=== PATIENT | male | born 1945 | race Caucasian/White ===

== ENCOUNTER 2018-02-26 15:58 | Observation (INO) | payer OTHER ==
[~2018-02-26] VITALS: Ht 180.3 cm; Wt 100.9 kg
[2018-02-26 16:09] VITALS: Ht 180.3 cm; Wt 100.9 kg
[2018-02-26 17:07] LABS: BASOPHIL % 0.3 % (0-2); CALCIUM 9.1 mg/dL (8.5-10.1); CARBON DIOXIDE 28.4 mmol/L (21-32); CHLORIDE SERUM 109 mmol/L (98-107); CREATININE SERUM 1.2 mg/dL (0.7-1.3); GLUCOSE SERUM 94 mg/dL (74-106); PLATELET COUNT 228 x10^3mcL (130-400); POTASSIUM SERUM 4.1 mmol/L (3.5-5.1); SODIUM SERUM 143 mmol/L (136-145)
[2018-02-26 17:13] LABS: ALBUMIN 3.4 g/dL (3.4-5.0); ALKALINE PHOSPHATASE 67 U/L (46-116); ALT/SGPT 28 U/L (16-63); AST/SGOT 24 U/L (15-37); BILIRUBIN TOTAL 0.5 mg/dL (0.20-1.00); MAGNESIUM 2.1 mg/dL (1.8-2.4); TOTAL PROTEIN, SERUM 6.5 g/dL (6.4-8.2)
[2018-02-26 17:21] LABS: T3 TOTAL 0.84 ng/mL
[2018-02-26 17:35] LABS: FREE T4 0.98 ng/dL (0.76-1.46); FREE THYROXINE INDEX 2.4 ug/dL (1.4-4.5); T4(THYROXINE) 6.7 ug/dL (4.7-13.3)
[2018-02-26] MEDS ORDERED: LOSARTAN POTASS50 M1 PO (18:53)
[2018-02-26] MEDS ORDERED: LIPI10 PO (18:55)
[2018-02-26] MEDS ORDERED: FLO4 PO (18:55)
[2018-02-26] MEDS ORDERED: TOP50 PO (18:56)
[2018-02-26] MEDS ORDERED: ELIQUIS5 MG PO (18:58)
[2018-02-26 19:01] VITALS: BP 148/79
[2018-02-26 19:10] LABS: CHOLESTEROL/HDL RATIO 3.1; PHOSPHOROUS 3.5 mg/dL (2.5-4.9)
[2018-02-26 20:53] VITALS: BP 142/77
[2018-02-27 03:10] LABS: microscopic required? NO
[2018-02-27 03:32] LABS: urine erythrocyte NEGATIVE (NEGATIVE)
[2018-02-27 03:44] LABS: AMPHETAMINE QUAL UR NONE DETECTED (NEG <=1000)
[2018-02-27 06:03] VITALS: BP 153/83
[2018-02-27 09:28] VITALS: BP 140/73
[2018-02-27 11:57] VITALS: BP 154/76
[2018-02-27] MEDS ORDERED: LOSARTAN POTAS100 M1 PO (12:47)
[2018-02-27] MEDS ORDERED: COR200 PO (12:47)
[2018-02-27] MEDS ORDERED: TOPROL XL25 MG PO (12:49)
[2018-02-27 13:03] VITALS: BP 154/76
[2018-02-27 13:36] VITALS: BP 121/64
== END 2018-02-27 14:02 | disposition home or self-care (01) | DRG 310 ==
LOC: ED 15:58 → DU 18:32 → ED 18:41 → DU 18:47
PROVIDERS: Emergency Medicine; Family Medicine
DX: I48.2 Chronic atrial fibrillation (principal); I16.0 Hypertensive urgency; E87.8 Other disorders of electrolyte and fluid balance, not elsewhere classified; I25.2 Old myocardial infarction; Z68.30 Body mass index [BMI] 30.0-30.9, adult; Z95.1 Presence of aortocoronary bypass graft; Z85.820 Personal history of malignant melanoma of skin; Z85.46 Personal history of malignant neoplasm of prostate; Z86.73 Personal history of transient ischemic attack (TIA), and cerebral infarction without residual deficits
CPT/HCPCS: 83880; 84439; G0378; J7030; J7040; Q0092

== ENCOUNTER 2018-04-14 11:49 | Emergency (ER) | payer OTHER ==
[~2018-04-14] VITALS: Ht 180.3 cm; Wt 98.9 kg
[~2018-04-14 11:49] MED LIST: COR200 PO; ELIQUIS5 MG PO; FLO4 PO; LIPI10 PO; LOSARTAN POTAS100 M1 PO; LOSARTAN POTASS50 M1 PO; TOP50 PO; TOPROL XL25 MG PO
[2018-04-14 13:09] LABS: BASOPHIL % 0.4 % (0-2); PLATELET COUNT 211 x10^3mcL (130-400); RED CELL DISTRIBUTION WIDTH 14.4 % (11.5-14.5)
[2018-04-14 13:23] LABS: CALCIUM 8.8 mg/dL (8.5-10.1); CHLORIDE SERUM 108 mmol/L (98-107); CREATININE SERUM 1.2 mg/dL (0.7-1.3); GLUCOSE SERUM 88 mg/dL (74-106); POTASSIUM SERUM 3.8 mmol/L (3.5-5.1); SODIUM SERUM 142 mmol/L (136-145)
[2018-04-14 13:28] LABS: ALBUMIN 3.1 g/dL (3.4-5.0); ALKALINE PHOSPHATASE 58 U/L (46-116); ALT/SGPT 22 U/L (16-63); AST/SGOT 22 U/L (15-37); BILIRUBIN TOTAL 0.82 mg/dL (0.20-1.00)
[2018-04-14 14:56] VITALS: BP 116/70
== END 2018-04-14 14:56 | disposition home or self-care (01) ==
LOC: ED 11:49
PROVIDERS: Emergency Medicine
DX: T67.5XXA Heat exhaustion, unspecified, initial encounter (principal); T46.5X1A Poisoning by other antihypertensive drugs, accidental (unintentional), initial encounter; I48.91 Unspecified atrial fibrillation; Z85.828 Personal history of other malignant neoplasm of skin; X32.XXXA Exposure to sunlight, initial encounter; Y93.I9 Activity, other involving external motion; Y92.89 Other specified places as the place of occurrence of the external cause; Y99.8 Other external cause status
CPT/HCPCS: 83880; J7030; J8597

== ENCOUNTER 2019-04-16 09:48 | Emergency (ER) | payer OTHER ==
[~2019-04-16] VITALS: Ht 180.3 cm; Wt 88.9 kg
[2019-04-16 09:51] VITALS: Ht 180.3 cm; Wt 88.9 kg
[2019-04-16 11:21] VITALS: BP 155/84
== END 2019-04-16 11:21 | disposition home or self-care (01) ==
LOC: ED 09:48
DX: L60.0 Ingrowing nail (principal); S91.202A Unspecified open wound of left great toe with damage to nail, initial encounter; I10 Essential (primary) hypertension; I48.91 Unspecified atrial fibrillation; Z85.828 Personal history of other malignant neoplasm of skin; Z95.1 Presence of aortocoronary bypass graft; W23.0XXA Caught, crushed, jammed, or pinched between moving objects, initial encounter; Y93.89 Activity, other specified; Y92.89 Other specified places as the place of occurrence of the external cause; Y99.8 Other external cause status
CPT/HCPCS: 90715; J2001

== ENCOUNTER 2019-04-18 08:50 | Emergency (ER) | payer OTHER ==
[~2019-04-18] VITALS: Ht 180.3 cm; Wt 89.4 kg
[2019-04-18 08:52] VITALS: BP 144/66; Ht 180.3 cm; Wt 89.4 kg
== END 2019-04-18 11:00 | disposition home or self-care (01) ==
LOC: ED 08:50
DX: Z48.01 Encounter for change or removal of surgical wound dressing (principal); I10 Essential (primary) hypertension; I48.91 Unspecified atrial fibrillation; Z95.1 Presence of aortocoronary bypass graft; Z85.828 Personal history of other malignant neoplasm of skin

== ENCOUNTER 2020-07-20 22:26 | Emergency (ER) | payer OTHER ==
[~2020-07-20] VITALS: Ht 180.3 cm; Wt 83.9 kg
[2020-07-20 22:32] VITALS: Ht 180.3 cm; Wt 83.9 kg
[2020-07-20 23:53] LABS: BASOPHIL % 0.3 % (0-2); PLATELET COUNT 214 x10^3mcL (130-400)
[2020-07-20 23:57] LABS: RED CELL DISTRIBUTION WIDTH 15.5 % (11.5-14.5)
[2020-07-21 00:04] LABS: CALCIUM 9.4 mg/dL (8.5-10.1); CARBON DIOXIDE 26.7 mmol/L (21-32); CHLORIDE SERUM 103 mmol/L (98-107); GLUCOSE SERUM 133 mg/dL (74-106); POTASSIUM SERUM 3.2 mmol/L (3.5-5.1); SODIUM SERUM 139 mmol/L (136-145)
[2020-07-21 00:09] LABS: ALKALINE PHOSPHATASE 80 U/L (46-116); ALT/SGPT 24 U/L (16-63); AST/SGOT 19 U/L (15-37); BILIRUBIN TOTAL 0.9 mg/dL (0.20-1.00); LIPASE 124 IU/L (73-393)
[2020-07-21 02:13] VITALS: BP 180/82
== END 2020-07-21 02:13 | disposition home or self-care (01) ==
LOC: ED 22:26
PROVIDERS: Emergency Medicine
DX: K80.20 Calculus of gallbladder without cholecystitis without obstruction (principal); I10 Essential (primary) hypertension
CPT/HCPCS: 83880; J1885; J2405; J7030; Q0092